=== PATIENT | female | born 1950 | race Caucasian/White ===

== ENCOUNTER 2020-12-06 18:51 | Emergency (ER) | payer MEDICARE, OTHER ==
[~2020-12-06 18:51] MED LIST: CLARITIN10 MG PO; COUMADIN1 MG PO; FERROUS SULFAT325 MG PO; HYDROXYZINE HCL25 MG PO; IBUPROFEN600 MG PO; KEFLEX CAP 500500 MG PO; MEDROL4 MG PO; NEURONTIN 100100 MG PO; PHENERGAN 25 MG25 M1 PO; PROTONIX 40 MG40 M1 PO; SIMVASTATIN20 MG PO; SPIRIVA18 MCG INH; SYMBICORT 16010.2 GM INH; TESSALON PERLE100 MG PO; ZANTAC150 MG PO
[2020-12-06 20:11] LABS: HEMOGLOBIN 10.5 gm/dl (12.3-15.3); RED BLOOD COUNT 3.46 M/UL (4.00-5.10); WHITE BLOOD COUNT 14.1 K/UL (4.5-11.0)
[2020-12-06 20:43] LABS: BUN/CREATININE RATIO 20 (0-10)
[2020-12-06] MEDS ORDERED: OMNICEF 300 MG300 MG PO (22:50)
== END 2020-12-07 00:13 | disposition home or self-care (01) ==
LOC: ER1 18:51
PROVIDERS: Family Medicine
DX: U07.1 COVID-19 (principal); N39.0 Urinary tract infection, site not specified; I73.9 Peripheral vascular disease, unspecified
CPT/HCPCS: 71045; 80053; 81001; 82550; 82553; 83605; 83690; 83874; 84484; 85025; 93005; 96374; 96375; 96376; 99285; J0696; J1642; J2270; J2405; Q9967; U0003

== ENCOUNTER 2020-12-11 22:33 | Emergency (ER) | payer MEDICARE ==
[~2020-12-11 22:33] MED LIST changes: +OMNICEF 300 MG300 MG PO
[2020-12-12 00:10] LABS: RED BLOOD COUNT 3.61 M/UL (4.00-5.10)
[2020-12-12 00:32] LABS: BUN/CREATININE RATIO 37 (0-10)
== END 2020-12-12 21:00 ==
LOC: ER1 22:33
PROVIDERS: Student in an Organized Health Care Education/Training Program
DX: I74.09 Other arterial embolism and thrombosis of abdominal aorta (principal); J44.9 Chronic obstructive pulmonary disease, unspecified; Z88.0 Allergy status to penicillin; Z79.01 Long term (current) use of anticoagulants
CPT/HCPCS: 80053; 81001; 82550; 82553; 83605; 83690; 83874; 84484; 85025; 85610; 85730; 96374; 96375; 96376; 99285; J1644; J2270; Q9967